=== PATIENT | female | born 1960 | race African-American/Black ===

== ENCOUNTER 2017-05-16 20:34 | Emergency (ER) | payer BC ==
[~2017-05-16] VITALS: Ht 157.4 cm; Wt 89.4 kg
[2017-05-16] MEDS ORDERED: PREDNISONE50 MG PO (20:50)
== END 2017-05-16 21:45 | disposition home or self-care (01) ==
LOC: ED 20:34
DX: M72.2 Plantar fascial fibromatosis (principal); Z88.6 Allergy status to analgesic agent

== ENCOUNTER 2019-02-25 15:40 | Emergency (ER) | payer OTHER, BC ==
[~2019-02-25] VITALS: Ht 157.4 cm; Wt 88.5 kg
[~2019-02-25 15:40] MED LIST: PREDNISONE50 MG PO
== END 2019-02-25 17:36 | disposition home or self-care (01) ==
LOC: ED 15:40
DX: S61.210A Laceration without foreign body of right index finger without damage to nail, initial encounter (principal); Z88.6 Allergy status to analgesic agent; Z79.899 Other long term (current) drug therapy; W22.09XA Striking against other stationary object, initial encounter; Y93.89 Activity, other specified; Y92.89 Other specified places as the place of occurrence of the external cause; Y99.8 Other external cause status